=== PATIENT | female | born 1960 | race Caucasian/White ===

== ENCOUNTER 2017-02-11 06:17 | Day surgery (SDC) | payer OTHER ==
[2017-02-10 11:36] VITALS: BMI 41.7
[~2017-02-11 06:17] MED LIST: ceFAZolin SODIUM 1 GM VIAL IVPB ONE
[2017-02-11 06:57] VITALS: TEMP 97.7
[2017-02-11 07:08] LABS: URINE APPEARANCE CLEAR; URINE BILIRUBIN NEGATIVE (NEGATIVE); URINE COLOR LTYELLOW; URINE GLUCOSE (UA) NEGATIVE (NEGATIVE); URINE KETONE NEGATIVE (NEGATIVE); URINE LEUK ESTERASE NEGATIVE (NEGATIVE); URINE NITRITE NEGATIVE (NEGATIVE); URINE PROTEIN NEGATIVE (NEGATIVE); URINE UROBILINOGEN NEGATIVE E.U./dl (0.2-1.0)
[2017-02-11 07:09] LABS: URINE BLOOD 2+ (NEGATIVE)
[2017-02-11 07:16] LABS: URINE BACTERIA RARE /hpf (NONE SEEN); URINE RBC 13 /hpf (0-3); URINE WBC 1 /hpf (3-5)
[2017-02-11] MEDS ORDERED: PROPOFOL 20 ML ONE ×2 (09:15→09:27)
[2017-02-11] MEDS ORDERED: ceFAZolin SODIUM 1 GM VIAL ONE (09:35)
[2017-02-11] MEDS ORDERED: ceFAZolin SODIUM 1 GM VIAL IVPB ONE (09:40)
[2017-02-11] MEDS ORDERED: BUPIVACAINE HCL/PF (5 MG/ML) 30 ML VIAL IJ ONE (10:04)
[2017-02-11] MEDS ORDERED: DEXAMETHASONE SOD PHOSPHATE 4 MG/1 ML VIAL ONE (10:07)
--- NOTE | 2017-02-11 10:17 | OP ---
Operative Note - Note: Operative Date: 02/11/17 Pre-Operative Diagnosis: right knee pain, medial meniscus tear Operation: right knee arthroscopy, partial medial meniscectomy, debridement chondroplasty Post-Operative Diagnosis: Same as Pre-op Surgeon: Ignacio Moreno Anesthesiologist/CALL PERSON: Reji Simental Anesthesia: General, Local Specimens Removed: shavings Estimated Blood Loss (mls): 0 Drains, Volume Out (mls): 0 Blood Volume Replaced (mls): 0 Fluid Volume Replaced (mls): 500 Operative Report Dictated: Yes
--- NOTE | 2017-02-11 10:19 | HP ---
Satellite [facility] - Chief Complaint Chief Complaint: right knee pain History of Present Illness: right knee medial meniscus tear History Source: Patient Limitations to Obtaining History: No Limitations - Past Medical History Allergies/Adverse Reactions: Allergies Allergy/AdvReac Type Severity Reaction Status Date / Time No Known Allergies Allergy Verified 02/11/17 07:00 - Current Medications Current Medications: Home Medications Medication Instructions Recorded Amlodipine Bes/Olmesartan Med 1 each PO DAILY 02/10/17 [Amlodipine-Olmesartan 10-20 mg] Cholecalciferol (Vitamin D3) 50,000 unit PO WEEKLY 02/10/17 [Vitamin D3] Levothyroxine [Synthroid -] 175 mcg PO DAILY 02/10/17 Liraglutide [Victoza -] 1.8 mg SQ HS 02/10/17 Rosuvastatin Calcium [Crestor] 5 mg PO HS 02/10/17 Satellite Physical Exam - Physical Examination Vital Signs: Vital Signs Period Temp Pulse Resp BP Sys/Goel Pulse Ox Last 24 Hr 97.7 F 79 18 128/68 97 General Appearance: Well Nourished ENT: Clear Lung: Clear to auscultation Heart: Regular rate & rhythm Breasts: Soft Abdomen: Soft Extremities: No edema Satellite Impression/Plan - Impression/Plan Impression: right knee medial meniscus tear Operative Procedure: right knee arthroscopy, partial medial meniscectomy Date to be Performed: 02/11/17
[2017-02-11] MEDS ORDERED: ONDANSETRON 4 MG/2 ML VIAL IVPUSH PRN (10:28)
[2017-02-11] MEDS ORDERED: oxyCODONE HCL 5 MG TABLET PO PRN (10:28)
[2017-02-11] MEDS ORDERED: LACTATED RINGERS SOLUTION 1,000 ML IV SCH (10:30)
[2017-02-11 12:39] VITALS: BP 144/66; PULSE 78
--- NOTE | 2017-02-12 08:37 | OP ---
DATE OF OPERATION: 02/11/2017 PREOPERATIVE DIAGNOSIS: Right knee medial meniscus tear and osteoarthritis. POSTOPERATIVE DIAGNOSIS: Right knee medial meniscus tear and osteoarthritis. PROCEDURE: Right knee arthroscopy, partial medial meniscectomy, and debridement chondroplasty. SURGEON: Ignacio Moreno MD TRANSPORTATION ENGINEER: None. ANESTHESIOLOGIST: Reji Simental DO ANESTHESIA: LMA anesthesia with local injection 20 mL 0.5% Marcaine. DRAINS: None. COMPLICATIONS: None. SPECIMENS: Arthroscopic shavings. BLOOD LOSS: None. BLOOD GIVEN: None. FLUID REPLACEMENT: 500 mL. INDICATIONS: This patient is a 56-year-old female with a preoperative diagnosis of a right knee medial meniscus tear and osteoarthritis. After understanding the potential risks, complications, alternatives, and benefits of surgery versus nonsurgical treatment, the patient elected to undergo this procedure. DESCRIPTION OF PROCEDURE: The patient was brought to the operating room, peripheral IV placed, IV sedation was given. Then, 2 g of IV Ancef were given. LMA anesthesia was induced. Ample padding was placed around the right thigh. Tourniquet was applied. Styrofoam ring applied. The right lower extremity was placed into a C-clamp leg-hall with ample padding throughout. The right lower extremity was prepped and draped in sterile fashion, elevated, exsanguinated with an Esmarch bandage, and tourniquet inflated to 275 mmHg. A superomedial outflow portal was established, lateral portal was established. Arthroscope was introduced into the joint under direct visualization using a spinal needle. A medial portal was established. Then, a diagnostic arthroscopy was performed. Patient was seen to have a significant complex tear of the body and posterior horn of the medial meniscus. The radial component went all the way to the edge of the hoop fibers. Using a combination of the right biter, upbiter, and curved shaver, a partial medial meniscectomy was performed. Photographs were taken before and after. In addition, the patient had significant areas of grade 2 and grade 3 chondromalacia of the medial femoral condyle and grade 2 changes of the medial tibial plateau, both of which were debrided with the shaver. Next, our attention turned to the intercondylar notch. The patient states he all looked a little loose, and there was an intrasubstance tear which was left alone, but photographed. Next, we turned our attention to the lateral compartment, which looked great. There was no osteoarthritis, and the lateral meniscus looked fine. Next, our attention was turned to the patellofemoral joint, where the patient had significant areas of grade 3 and even small areas of grade 4 chondromalacia of the undersurface of the patella and the femoral trochlea. Photographs were taken before and after debridement chondroplasty of this joint. All excess saline and debris were removed. Equipment was removed. Arthroscopic portals were closed with 3-0 nylon sutures. The area was then washed and dried. Then, 20 mL of 0.5% Marcaine were introduced into the joint. The area was then covered with Xeroform, 4x4, Webril, and an Nahid bandage. Tourniquet was taken down after a total tourniquet time of 20 minutes There were no complications during the case. The patient tolerated the procedure quite well, was brought to the ambulatory recovery room in stable condition. Nupur [id number]
--- NOTE | 2017-02-12 17:08 | PATH ---
Surgical Pathology Report Patient Name: JONATAN PEÑA [facility]. Rec. #: [id number] /Age/Gender: 1960 (Age: 56) / F Account: [id number] Location: [facility] Taken: 02/11/2017 Received: 02/11/2017 Reported: 02/12/2017 Physicians: Ignacio Moreno M.D. Specimen(s) Received SHAVINGS RIGHT KNEE Clinical History Right knee medial meniscus tear Final Diagnosis KNEE, RIGHT, ARTHROSCOPIC SHAVING: FIBROCARTILAGE WITH MYXOID DEGENERATIVE CHANGES, ALONG WITH PORTIONS OF SYNOVIUM WITH CHRONIC INFLAMMATION, AND HYALINE CARTILAGE. Electronically Signed Daniel Darling M.D. Gross Description Received in formalin, labeled "right knee shaving," is a 4.0 x 3.4 x 0.6 cm. aggregate of pineda-yellow soft tissue fragments. A national account representative portion is submitted in one cassette. /02/11/201702/11/2017
== END 2017-02-11 12:39 | disposition home or self-care (01) ==
LOC: JASU-SURG 06:17
PROVIDERS: ATTEND Orthopaedic Surgery
PROC: 0SBC4ZZ Excision of Right Knee Joint, Percutaneous Endoscopic Approach (ICD-10-PCS; principal; 2017-02-11 09:00)
DX: M23.203 Derangement of unspecified medial meniscus due to old tear or injury, right knee (principal); M17.11 Unilateral primary osteoarthritis, right knee
CPT/HCPCS: 36415; 81003; 81015; 85730; 88304-TC; 94760

== ENCOUNTER 2017-09-23 21:00 | Emergency (ER) | payer OTHER ==
--- NOTE | 2017-09-23 21:09 | PDOC ---
History of Present Illness - General History Source: Patient Exam Limitations: No Limitations <Meseret Wilkins - Last Filed: 09/23/17 22:07> <Muriel Forrest - Last Filed: 09/24/17 01:13> - General Chief Complaint: Palpitations Stated Complaint: PALPITATIONS Time Seen by Provider: 09/23/17 21:08 - History of Present Illness Initial Comments: 09/23/17 22:04 57 year old female, with significant past medical history of borderline diabetes , thyroidectomy, HTN, HLD, who presents to the emergency room complaining of 2 days of intermittent, nonexertional fluttering in her chest. When asked to describe the fluttering she states, "that feeling in your chest when you get scared" and "a pressure." When the fluttering occurs, she reports the sensation that she has to cough. 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 Denies lightheadedness, dizziness. Denies recent illness. Denies increased leg swelling. Denies fever, chills, nausea, vomiting. Allergies: NKDA Surgical hx: cholecystectomy PCP/[employer] Wheel [employer]isher: Dr. Niko Gay (Meseret Wilkins) Past History <Meseret Wilkins - Last Filed: 09/23/17 22:07> - Past Medical History Diabetes: Yes (BORDERLINE) HTN: Yes Thyroid Disease: Yes - Surgical History Orthopedic Surgery: Yes (LEFT KNEE REPLACEMENT) - Suicide/Smoking/Psychosocial Hx Smoking History: Current every day smoker Have you smoked in the past 12 months: Yes Number of Cigarettes Smoked Daily: 10 'Breaking Loose' booklet given: 02/11/17 Hx Alcohol Use: No Drug/Substance Use Hx: No Substance Use Type: None Hx Substance Use Treatment: No <Muriel Forrest - Last Filed: 09/24/17 01:13> - Past Medical History Allergies/Adverse Reactions: Allergies Allergy/AdvReac Type Severity Reaction Status Date / Time No Known Allergies Allergy Verified 09/23/17 21:16 Home Medications: Ambulatory Orders Amlodipine Bes/Olmesartan Med [Amlodipine-Olmesartan 10-20 mg] 1 each PO DAILY 02/10/17 Levothyroxine [Synthroid -] 175 mcg PO DAILY 02/10/17 Liraglutide [Victoza -] 1.8 mg SQ HS 02/10/17 Folic Acid 1 mg PO DAILY 09/23/17 Rosuvastatin [Crestor -] 10 mg PO HS 09/23/17 Nitrofurantoin Monohyd/M-Cryst [Macrobid -] 100 mg PO BID #10 capsule 09/24/17 Review of Systems - Review of Systems Able to Perform ROS?: Yes <Meseret Wilkins - Last Filed: 09/23/17 22:07> <Muriel Forrest - Last Filed: 09/24/17 01:13> - Review of Systems Comments:: 09/23/17 22:05 GENERAL/CONSTITUTIONAL: No fever or chills. No weakness. HEAD, EYES, EARS, NOSE AND THROAT: No change in vision. No ear pain or discharge. No sore throat. CARDIOVASCULAR: +fluttering in her chest, chest pressure. No shortness of breath. RESPIRATORY: No wheezing, or hemoptysis. GASTROINTESTINAL: No nausea, vomiting, diarrhea or constipation. GENITOURINARY: No dysuria, frequency, or change in urination. MUSCULOSKELETAL: No joint or muscle swelling or pain. No neck or back pain. SKIN: No rash NEUROLOGIC: No headache, vertigo, loss of consciousness, or change in strength/ sensation. ENDOCRINE: No increased thirst. No abnormal weight change. HEMATOLOGIC/LYMPHATIC: No anemia, easy bleeding, or history of blood clots. ALLERGIC/IMMUNOLOGIC: No hives or skin allergy. (Meseret Wilkins) *Physical Exam <Meseret Wilkins - Last Filed: 09/23/17 22:07> <Muriel Forrest - Last Filed: 09/24/17 01:13> - Vital Signs Last Vital Signs Temp Pulse Resp BP Pulse Ox 98.8 F 82 16 149/70 95 09/23/17 21:07 09/23/17 21:07 09/23/17 21:07 09/23/17 21:07 09/23/17 21:07 - Physical Exam Comments: 09/23/17 22:06 GENERAL: Awake, alert, and fully oriented, in no acute distress HEAD: No signs of trauma EYES: PERRLA, EOMI, sclera anicteric, conjunctiva clear ENT: Auricles normal inspection, hearing grossly normal, nares patent, oropharynx clear without exudates. Moist mucosa NECK: Normal ROM, supple, no lymphadenopathy, JVD, or masses LUNGS: Breath sounds equal, clear to auscultation bilaterally. No wheezes, and no crackles HEART: Regular rate and rhythm, normal S1 and S2, no murmurs, rubs or gallops ABDOMEN: Soft, nontender, normoactive bowel sounds. No guarding, no rebound. No masses EXTREMITIES: Normal range of motion, no edema. No clubbing or cyanosis. No cords, erythema, or tenderness NEUROLOGICAL: Cranial nerves II through XII grossly intact. Normal speech, normal gait SKIN: Warm, Dry, normal turgor, no rashes or lesions noted. (Meseret Wilkins) ED Treatment Course - LABORATORY CBC & Chemistry Diagram: 09/23/17 21:40 09/23/17 21:40 <Meseret Wilkins - Last Filed: 09/23/17 22:07> - LABORATORY CBC & Chemistry Diagram: 09/23/17 21:40 09/23/17 21:40 <Muriel Forrest - Last Filed: 09/24/17 01:13> - ADDITIONAL ORDERS Additional order review: Laboratory Results 09/23/17 09/23/17 09/23/17 22:39 21:40 21:40 PT with INR 12.3 INR 1.10 Sodium 135 L Potassium 3.6 Chloride 103 Carbon Dioxide 26 Anion Gap 6 L BUN 15 Creatinine 0.6 Creat Clearance w eGFR > 60 Random Glucose 100 Calcium 9.1 Total Bilirubin 0.6 AST 17 ALT 21 Alkaline Phosphatase 101 H Creatine Kinase 139 Troponin I < 0.03 L Total Protein 7.6 Albumin 4.0 Urine Color Yellow Urine Appearance Clear Urine pH 7.0 Ur Specific [place] 1.020 Urine Protein Negative Urine Glucose (UA) Negative Urine Ketones Negative Urine Blood 2+ H Urine Nitrite Negative Urine Bilirubin Negative Urine Urobilinogen 0.2 Ur Leukocyte Esterase Negative Urine RBC 40-60 Urine WBC 0-2 Ur Epithelial Cells Few Urine Bacteria Few 09/23/17 21:40 RBC 5.99 H MCV 69.7 L MCHC 32.0 RDW 14.3 MPV 10.2 Neutrophils % 57.6 Lymphocytes % 32.8 Monocytes % 7.3 Eosinophils % 1.7 Basophils % 0.6 - Medications Given in the ED: ED Medications Discontinued Medications Generic Name Dose Route Start Last Admin Trade Name Lorie PRN Reason Stop Dose Admin Ondansetron HCl 4 mg 09/23/17 21:39 09/23/17 22:00 Zofran Injection IVPUSH 09/23/17 21:40 Not Given ONCE ONE Progress Note <ClaudetteMeseret - Last Filed: 09/23/17 22:07> <Muriel Forrest - Last Filed: 09/24/17 01:13> - Progress Note Progress Note: Documentation has been prepared under my direction and personally reviewed by me in its entirety. I attest that this documented accurately reflects all work, treatment, procedures and medical decision making performed by me. (Muriel Forrest) Medical Decision Making <Meseret Wilkins - Last Filed: 09/23/17 22:07> <Muriel Forrest - Last Filed: 09/24/17 01:13> - Medical Decision Making 09/23/17 22:29 As noted above, this 57-year-old woman with hypertension/prediabetes/s/p thyroidectomy presents with a few day history of frequent palpitations, described as "fluttering" in her chest. Palpitations are not associated with activity; sensation resolved spontaneously. Patient states that she coughs when she has the palpitations and may have some "pressure" feeling at the time of palpitations but no shortness of breath noted. No recent fluid losses/ fever. Patient does not recall recent TFTs and has had no change in her thyroid medication since she was placed on replacement medication 2 years ago after surgery. Patient admits to drinking large amounts (greater than 2 L a day) of Pepsi. No smoking or other caffeine intake Exam as noted 12-lead electrocardiogram performed and interpreted by me: Normal sinus rhythm at 78 beats for minute; no acute ST or T-wave abnormalities. [place] and intervals are normal. There is no arrhythmia present: No ectopic beats seen on 12-lead electrocardiogram Monitor reveals occasional PACs only 09/24/17 01:06 Laboratory evaluation notable for white blood cell count of 13,500; except for MCV of 67, remainder of CBC was unremarkable. Chemistry profile showed relative prerenal azotemia but no abnormality in electrolytes or glucose levels. Troponin is not elevated. Urinalysis notable for microscopic hematuria (40 to 60 RBCs per high-power field ) with 0-2 WBCs/few bacteria/few epi TSH pending Dr.Nadem Gay (patient's PMD) answering service contacted in order to discuss case with him. However, although 3 attempts were made, his covering physician ( Dr. Woodall) stated to the answering service staff that he would not be able to answer any calls from emergency departments. Continuous monitoring of patient's heart rhythm showed occasional solitary PAc without other arrhythmia. In light of microscopic hematuria and patient's history of prediabetes, despite no symptoms of dysuria or urinary frequency/urgency, we will prophylactically treat for UTI with nitrofurantoin 100 mg now with prescription for nitrofurantoin 100 mg twice a day for 5 days. Urine culture and sensitivity sent. Patient should follow-up with Dr. Gay soon, calling him tomorrow a.m. to make arrangements. If she has worsening of her symptoms (increased palpitations, shortness of breath, chest pain/pressure) she should return to the ER (Muriel Forrest) *DC/Admit/Observation/Transfer <Meseret Wilkins - Last Filed: 09/23/17 22:07> <Muriel Forrest - Last Filed: 09/24/17 01:13> Diagnosis at time of Disposition: PAC (premature atrial contraction), Microscopic hematuria - Discharge Dispostion Disposition: HOME Condition at time of disposition: Stable - Prescriptions Prescriptions: Nitrofurantoin Monohyd/M-Cryst [Macrobid -] 100 mg PO BID #10 capsule - Referrals Referrals: Niko Gay [Primary Care Provider] - Call tomorrow - Patient Instructions Printed Discharge Instructions: DI for Palpitations Additional Instructions: Drink plenty of water; minimize caffeinated beverages Continue medications as prescribed Nitrofurantoin 100 mg twice a day for 5 days Call tomorrow to arrange follow-up within 3-4 days Return to ER if you have more frequent palpitations/chest pain or pressure/ shortness of breath - Post Discharge Activity - Attestations Scribe Attestion: 09/23/17 22:07 Documentation prepared by LEONOR Ramirez, acting as medical laboratory technicians for Muriel Forrest MD. (Meseret Wilkins)
[2017-09-23 21:24] VITALS: BP 149/70; PULSE 82; TEMP 98.8; BMI 41.1
[2017-09-23] MEDS ORDERED: ONDANSETRON 4 MG/2 ML VIAL IVPUSH ONE (21:39)
[2017-09-23 22:01] LABS: BASOPHIL 0.6 % (0-2.0); RDW 14.3 % (11.6-15.6)
[2017-09-23 22:04] LABS: EOSINOPHIL 1.7 % (0-4.5); MCH 22.3 pg (25.7-33.7); MEAN CELL VOLUME 69.7 fl (80-96); MEAN PLT VOLUME 10.2 fl (7.5-11.1); NEUTROPHILS 57.6 % (42.8-82.8); PLATELET COUNT 219 K/MM3 (134-434); WHITE BLOOD COUNT 13.6 K/mm3 (4.0-10.8)
[2017-09-23 22:09] LABS: INR 1.1 (0.82-1.09); PROTHROMBIN TIME (PATIENT) 12.3 SEC (10.2-13.0)
[2017-09-23 22:17] LABS: ALK PHOS 101 U/L (32-92); ANION GAP 6 (8-16); BILIRUBIN,TOTAL 0.6 mg/dl (0.2-1.0); CALCIUM 9.1 mg/dl (8.4-10.2); CO2 26 mmol/L (22-28); CPK 139 IU/L (26-192); CREATININE 0.6 mg/dl (0.6-1.3); GLUCOSE,RANDOM 100 mg/dl (74-106); SGOT/AST 17 U/L (10-42); SGPT/ALT 21 U/L (10-40); TOT PROT 7.6 g/dl (6.4-8.3)
[2017-09-23 22:25] LABS: TROPONIN I (DFP) < 0.03 ng/ml (0.03-0.50)
[2017-09-23 22:48] LABS: URINE APPEARANCE Clear; URINE BILIRUBIN Negative (NEGATIVE); URINE BLOOD 2+ (NEGATIVE); URINE COLOR YELLOW; URINE GLUCOSE (UA) Negative (NEGATIVE); URINE KETONE Negative (NEGATIVE); URINE LEUK ESTERASE Negative (NEGATIVE); URINE NITRITE Negative (NEGATIVE); URINE PROTEIN Negative (NEGATIVE); URINE UROBILINOGEN 0.2 (0.2-1.0)
[2017-09-23 23:02] LABS: URINE BACTERIA FEW /hpf (NEGATIVE); URINE RBC 40-60 /hpf (0-3); URINE WBC 0-2 (0-5)
[2017-09-23 23:06] LABS: HYPOCHROMIA 2+; MICROCYTOSIS 2+; PLATELET ESTIMATE ADEQUATE
[2017-09-24] MEDS ORDERED: NITROFURANTOIN MACROCRYSTAL 50 MG CAPSULE (FP) ONE (01:00)
[2017-09-24] MEDS ORDERED: NITROFURANTOIN MACROCRYSTAL 50 MG CAPSULE (FP) PO SCH (01:00)
--- NOTE | 2017-09-26 17:31 | EKG ---
Test Reason : Blood Pressure : / mmHG Vent. Rate : 078 BPM Atrial Rate : 078 BPM P-R Int : 158 ms QRS Dur : 082 ms QT Int : 386 ms P-R-T Axes : 036 024 035 degrees QTc Int : 440 ms NORMAL SINUS RHYTHM POSSIBLE LEFT ATRIAL ENLARGEMENT BORDERLINE ECG WHEN COMPARED WITH ECG OF 29-JAN-2010 09:13, NO SIGNIFICANT CHANGE WAS FOUND Confirmed by MARILUZ MOTA MD ([id number]) on 09/26/2017 5:31:25 PM Referred By: DR MORALES Confirmed By:MARILUZ MOTA MD
== END 2017-09-24 01:07 | disposition home or self-care (01) ==
LOC: FER 21:00
DX: I49.1 Atrial premature depolarization (principal); R31.29 Other microscopic hematuria; R73.03 Prediabetes; I10 Essential (primary) hypertension; E78.5 Hyperlipidemia, unspecified; F17.210 Nicotine dependence, cigarettes, uncomplicated; E07.9 Disorder of thyroid, unspecified
CPT/HCPCS: 36415; 80053; 81003; 81015; 82550; 84443; 84484; 85025; 85610; 87086; 93005; 99284-25

== ENCOUNTER 2018-02-22 05:15 | Day surgery (SDC) | payer OTHER ==
[2018-02-17 08:05] VITALS: BMI 42.0
--- NOTE | 2018-02-22 08:41 | HP ---
Past Medical History - Primary Care Physician PCP:: Ramana Sosa - Admission Chief Complaint: postmenopausal vaginal bleeding History Source: Patient Limitations to Obtaining History: No Limitations - Past Medical History Cardiovascular: Yes: HTN, Hyperlipdemia Pulmonary: Yes: Asthma Endocrine: Yes: Hypothyroidism - Past Surgical History Hx Myomectomy: No Hx Transabdominal Cerclage: No - Smoking History Smoking history: Current every day smoker Have you smoked in the past 12 months: Yes Aproximately how many cigarettes per day: 20 - Alcohol/Substance Use Hx Alcohol Use: No - Social History History of Recent Travel: No Home Medications - Allergies Allergies/Adverse Reactions: Allergies Allergy/AdvReac Type Severity Reaction Status Date / Time No Known Allergies Allergy Verified 02/22/18 08:12 - Home Medications Home Medications: Ambulatory Orders Amlodipine Bes/Olmesartan Med [Amlodipine-Olmesartan 10-20 mg] 1 each PO DAILY 02/10/17 Folic Acid 1 mg PO DAILY 09/23/17 Rosuvastatin [Crestor -] 10 mg PO HS 09/23/17 Exenatide Microspheres [Bydureon Pen] 2 mg SQ WEEKLY 02/17/18 Levothyroxine [Synthroid -] 150 mcg PO DAILY 02/17/18 Review of Systems - Review of Systems Constitutional: reports: No Symptoms Eyes: reports: No Symptoms HENT: reports: No Symptoms Neck: reports: No Symptoms Cardiovascular: reports: No Symptoms Respiratory: reports: No Symptoms Gastrointestinal: reports: No Symptoms Genitourinary: reports: No Symptoms Breasts: reports: No Symptoms Reported Musculoskeletal: reports: No Symptoms Integumentary: reports: No Symptoms Neurological: reports: No Symptoms Endocrine: reports: No Symptoms Hematology/Lymphatic: reports: No Symptoms Psychiatric: reports: No Symptoms 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 Vital Signs: Vital Signs Temperature 98.7 F 02/22/18 07:31 Pulse Rate 79 02/22/18 07:31 Respiratory Rate 18 02/22/18 07:31 Blood Pressure 129/69 02/22/18 07:31 O2 Sat by Pulse Oximetry (%) 97 02/22/18 07:30 Constitutional: Yes: Well Nourished, No Distress, Calm Eyes: Yes: WNL, Conjunctiva Clear, EOM Intact HENT: Yes: WNL, Atraumatic, Normocephalic Neck: Yes: WNL, Supple, Trachea Midline Cardiovascular: Yes: WNL, Regular Rate and Rhythm Respiratory: Yes: WNL, Regular, CTA Bilaterally Gastrointestinal: Yes: WNL ...Rectal Exam: Yes: WNL Renal/: Yes: WNL External Genitalia: Yes: Normal Vaginal Exam: Yes: Normal Cervix: Yes: Normal Uterus: Yes: Normal Adnexa: Not Palpable: Left, Right Breast(s): Yes: WNL Musculoskeletal: Yes: WNL Extremities: Yes: WNL Integumentary: Yes: WNL Neurological: Yes: WNL, Alert, Oriented ...Motor Strength: WNL Psychiatric: Yes: WNL, Alert, Oriented Problem List - Problem (1) Postmenopausal bleeding Code(s): N95.0 - POSTMENOPAUSAL BLEEDING Assessment/Plan hysteroscopy D&C
[2018-02-22] MEDS ORDERED: PROMETHAZINE HCL 25 MG/1 ML VIAL IVPB PRN (08:53)
[2018-02-22] MEDS ORDERED: oxyCODONE HCL 5 MG TABLET PO PRN ×2 (08:53→10:27)
[2018-02-22] MEDS ORDERED: ONDANSETRON 4 MG/2 ML VIAL IVPUSH PRN ×2 (08:53→10:27)
[2018-02-22] MEDS ORDERED: LACTATED RINGERS SOLUTION 1,000 ML IV SCH (09:00)
[2018-02-22] MEDS ORDERED: MIDAZOLAM HCL 2 MG/2 ML SINGLE DOSE VIAL ONE (09:15)
[2018-02-22] MEDS ORDERED: PROPOFOL 20 ML ONE (09:20)
[2018-02-22 10:07] VITALS: TEMP 97.8
[2018-02-22] MEDS ORDERED: IBUPROFEN 600 MG TABLET (FP) PO PRN (10:27)
[2018-02-22] MEDS ORDERED: IBUPROFEN 800 MG/8 ML IJ IVPB PRN (10:27)
[2018-02-22] MEDS ORDERED: ELECTROLYTE-148 SOLN 1,000 ML IV SCH (10:30)
[2018-02-22] MEDS ORDERED: IBUPROFEN 600 MG TABLET (FP) PO ONE (11:26)
--- NOTE | 2018-02-22 13:34 | OP ---
DATE OF OPERATION: 02/22/2018 PREOPERATIVE DIAGNOSIS: Postmenopausal bleeding. POSTOPERATIVE DIAGNOSIS: Postmenopausal bleeding, endometrial polyp. SURGEON: Ramana Sosa MD ANESTHESIA: General. ANESTHESIOLOGIST: Mary Camargo MD ESTIMATED BLOOD LOSS: 25 mL OPERATION: Patient was taken to the operating room under adequate general anesthesia. Examination under anesthesia revealed the external genitalia to be normal. Vagina was normal. Cervix was clean, no gross lesion. The uterus was prominent. Adnexa no masses were palpable. Then with the weighted speculum in the vagina, anterior lip of the cervix was grasped with tenaculum. The cervix was slightly dilated with Hegar dilator and then hysteroscope was introduced. Visualization of the endocervical canal appeared there was a small posterior cervical polyp. Uterine cavity had endometrial polyp at the fundal area approximately 2 cm. The rest of the endometrium appeared to be normal and slightly atrophic. Both cornual region was identified and no other abnormality was noted. The hysteroscope was withdrawn and the cervix was gradually dilated with Hegar dilator. Endometrial polyp was removed and the uterine cavity was curetted in manager budget fashion. Patient tolerated the procedure well, left the OR in good condition. RAMANA SOSA M.D. [id number]
[2018-02-22 14:53] VITALS: BP 117/71; PULSE 70
--- NOTE | 2018-02-23 11:27 | PATH ---
Surgical Pathology Report Patient Name: JONATAN PEÑA [facility]. Rec. #: [id number] /Age/Gender: 1960 (Age: 57) / F Account: [id number] Location: [facility] Taken: 02/22/2018 Received: 02/22/2018 Reported: 02/23/2018 Physicians: Ramana Sosa M.D. Specimen(s) Received A: ENDOMETRIUM POLYP B: ENDOCERVICAL CURETTINGS Clinical History Postmenopausal bleeding Final Diagnosis A. ENDOMETRIAL POLYP, HYSTEROSCOPIC POLYPECTOMY: ENDOMETRIAL POLYP. B. ENDOMETRIAL CURETTING, DILATION AND CURETTAGE: FRAGMENTS OF ENDOMETRIAL POLYP, SCANT SUPERFICIAL MYOMETRIUM, AND BENIGN CERVICAL TISSUE Electronically Signed Rupali Lopez M.D. Gross Description A. Received in formalin labeled "endometrial polyp," is a 0.6 cm greatest dimension pink-pineda, polypoid portion of soft tissue. The specimen is submitted in toto in one cassette. B. Received in formalin labeled "endometrial curettings," is a 2.5 x 2.5 x 0.3 cm aggregate of red pineda soft tissue fragments. The formalin is filtered and the specimen is entirely submitted in one cassette. 02/22/201802/22/2018
== END 2018-02-22 12:00 | disposition home or self-care (01) ==
LOC: JASU-SURG 05:15
PROVIDERS: ATTEND Obstetrics & Gynecology
PROC: 0UB98ZX Excision of Uterus, Via Natural or Artificial Opening Endoscopic, Diagnostic (ICD-10-PCS; principal; 2018-02-22 09:00)
PROC: 0UDB8ZX Extraction of Endometrium, Via Natural or Artificial Opening Endoscopic, Diagnostic (ICD-10-PCS; 2018-02-22 09:00)
DX: N95.0 Postmenopausal bleeding (principal); N84.0 Polyp of corpus uteri; I10 Essential (primary) hypertension; E78.5 Hyperlipidemia, unspecified; E03.9 Hypothyroidism, unspecified; J45.909 Unspecified asthma, uncomplicated; F17.200 Nicotine dependence, unspecified, uncomplicated
CPT/HCPCS: 36415; 82962; 84703; 86850; 86900; 86901; 88305-TC; 94760

== ENCOUNTER 2019-11-25 15:38 | Emergency (ER) | payer BC, OTHER ==
[2019-11-25 15:43] VITALS: BP 137/69; PULSE 78; TEMP 98.7; BMI 43.0
[2019-11-25] MEDS ORDERED: guaiFENesin/CODEINE 10 ML UNIT-DOSE CUPS PO ONE (16:53)
[2019-11-25] MEDS ORDERED: guaiFENesin/CODEINE 10 ML UNIT-DOSE CUPS ONE (16:55)
--- NOTE | 2019-11-25 17:35 | PDOC ---
History of Present Illness - General Chief Complaint: Respiratory Stated Complaint: COUGH Time Seen by Provider: 11/25/19 15:41 History Source: Patient Exam Limitations: No Limitations - History of Present Illness Initial Comments: 59F PMH Hypothyroidism, HTN, HLD c/o 3 days of myalgias and persistent nonproductive cough. Denies rhinorrhea, wheezing, sore throat. Denies f/c. Denies sick contacts. No f/c. Pt endorses having coughed so much that she experiences chest pain w/ the coughs. One episode of post-tussive vomiting otherwise no n/v. No abd pain, dysuria, diarrhea. current smoker. Past History - Past Medical History Allergies/Adverse Reactions: Allergies Allergy/AdvReac Type Severity Reaction Status Date / Time No Known Allergies Allergy Verified 11/25/19 15:39 Home Medications: Ambulatory Orders Amlodipine Bes/Olmesartan Med [Amlodipine-Olmesartan 10-20 mg] 1 each PO DAILY 02/10/17 Levothyroxine [Synthroid -] 137 mcg PO DAILY 02/17/18 Guaifenesin AC [Robitussin-AC] 1 - 2 tsp PO TID PRN #120 ml MDD 6 11/25/19 COPD: No Diabetes: Yes (borderline) GI Disorders: Yes (heartburn occas) HTN: Yes Hypercholesterolemia: Yes Thyroid Disease: Yes - Surgical History Cholecystectomy: Yes Orthopedic Surgery: Yes (LEFT KNEE REPLACEMENT) - Psycho Social/Smoking Cessation Hx Smoking History: Current every day smoker Have you smoked in the past 12 months: Yes Number of Cigarettes Smoked Daily: 9 Information on smoking cessation initiated: Yes 'Breaking Loose' booklet given: 02/11/17 Hx Alcohol Use: No Drug/Substance Use Hx: No Substance Use Type: None Hx Substance Use Treatment: No Review of Systems - Review of Systems Able to Perform ROS?: Yes Comments:: CONSTITUTIONAL: endorses myalgias. Denies F / C HEENT: Denies headache, sore throat, rhinorrhea RESP: endorses nonproductive cough. denies sob. CARD: Denies cardiac type chest pain GI: Denies N / V / D, abdominal pain, bloody stool, inability to tolerate PO : Denies dysuria SKIN: Denies rashes NEURO: Denies numbness, tingling, weakness MSK: Denies back pain Is the patient limited [place] proficient: No *Physical Exam - Vital Signs Last Vital Signs Temp Pulse Resp BP Pulse Ox 98.7 F 78 18 137/69 98 11/25/19 15:38 11/25/19 15:38 11/25/19 15:38 11/25/19 15:38 11/25/19 15:38 - Physical Exam GEN: Well appearing, NAD. AAOx3. HEENT: NC/AT. No facial asymmetry. Moist mucous membranes, no erythema of the oropharynx. raspy voice. Supple neck w/ FROM. CV: S1/S2, RRR, no m/r/g LUNG: CTAB, no wheezes, crackles, rales, rhonchi. GI: Soft, ndnt, +BS, no guarding, no rebound. No masses. MSK: No obvious deformities of all extremities. SKIN: Warm, dry, no rashes appreciated. PSYCH: Normal mood and affect. NEURO: Moving all extremities well. ambulates w/ normal gait. ED Treatment Course - Medications Given in the ED: ED Medications Discontinued Medications Generic Name Dose Route Start Last Admin Trade Name Freq PRN Reason Stop Dose Admin Guaifenesin/Codeine Phosphate 10 ml 11/25/19 16:53 11/25/19 16:57 Robitussin Ac - PO 11/25/19 16:54 10 ml ONCE ONE Administration Medical Decision Making - Medical Decision Making 11/25/19 17:30 59F w/ 3 days of nonproductive cough and myalgias. No f/c. lungs CTAB. DDX - likely viral; at this point it is unlikely to be pneumonia, bacterial etiology, postnasal drip. - codeine syrup - cough improved s/p meds - dc home w/ meds and pcp f/u Discharge - Discharge Information Problems reviewed: Yes Clinical Impression/Diagnosis: Cough Condition: Stable Disposition: HOME - Admission No - Additional Discharge Information Prescriptions: Guaifenesin AC [Robitussin-AC] 1 - 2 tsp PO TID PRN #120 ml MDD 6 PRN Reason: Cough - Follow up/Referral Referrals: Karlos Gay MD [Primary Care Provider] - - Patient Discharge Instructions Patient Printed Discharge Instructions: Cough Additional Instructions: You likely have a viral illness causing your cough. We have sent a prescription cough medication to your pharmacy; please pick it up and take as prescribed. This medication may cause drowsiness. Avoid driving or operating heavy machinery while on this medication. Avoid alcohol while on this medication. We recommend smoking cessation. Follow up with your primary care doctor in the next 5-7 days to make sure the symptoms are improving. Return to the Emergency Department if you experience: - high fevers - difficulty breathing - chest pain - anything that concerns you - Post Discharge Activity
--- NOTE | 2019-11-25 17:41 | PDOC ---
Attending Attestation - Resident Resident Name: Octavio East - ED Attending Attestation I have performed the following: I have examined & evaluated the patient, The case was reviewed & discussed with the resident, I agree w/resident's findings & plan, Exceptions are as noted - HPI HPI: 11/25/19 17:39 Cold symptoms. Nonproductive cough. No fever. No chest pain, shortness of breath Past history mild hypertension and hypothyroidism controlled on medication. No lung disease. Smoker. - Physicial Exam PE: 11/25/19 17:39 Alert no acute distress, no tachypnea or dyspnea, afebrile BP well controlled Lungs clear, full breath sounds bilaterally, no splinting with deep inspiration CV normal Abdomen benign - Medical Decision Making 11/25/19 17:40 Impression: Mild viral bronchitis versus URI with cough. No respiratory distress Plan: Reassure, symptomatic treatment and close follow-up if symptoms change. No distress respiratory or otherwise at discharge with to follow-up as directed
== END 2019-11-25 17:40 | disposition home or self-care (01) ==
LOC: FER 15:38
DX: R05 Cough (principal); I10 Essential (primary) hypertension; E78.5 Hyperlipidemia, unspecified; M79.10 Myalgia, unspecified site; E03.9 Hypothyroidism, unspecified; R73.03 Prediabetes; E78.00 Pure hypercholesterolemia, unspecified; E07.9 Disorder of thyroid, unspecified; F17.210 Nicotine dependence, cigarettes, uncomplicated
CPT/HCPCS: 99282-25

== ENCOUNTER 2019-12-10 11:28 | Emergency (ER) | payer BC ==
[2019-12-10 11:36] VITALS: BP 148/73; PULSE 88; TEMP 98.2; BMI 42.6
[2019-12-10] MEDS ORDERED: ACETAMINOPHEN 325 MG TABLET (FP) PO ONE (11:45)
--- NOTE | 2019-12-10 11:46 | PDOC ---
History of Present Illness - General Chief Complaint: Pain Stated Complaint: fell down steps,both ankles Time Seen by Provider: 12/10/19 11:30 History Source: Patient, Spouse ( at bedside.) Exam Limitations: No Limitations - History of Present Illness Initial Comments: HPI: 59 y/o female presenting to [place] [facility] complaining of bilateral ankle pain s /p fall from standing height approx. 1.5 hrs prior to arrival. Left ankle hurts laterally and right ankle hurts posteriorly. Pt reports she accidentally tripped stepping down on the stairs outside of her building. Fell to the left side. Cushioned by her laundry bag. Denies striking her head or neck. Did not pass out. Was able to walk up to her apartment with assistance from her . Applied ice to both ankles without improvement of symptoms. Did not attempt relief with any OTC pain medication. Subsequently, expressed concern about hip tenderness as she is s/p jolene placement for left femur fracture. Review of Systems: In addition to that documented in the HPI above, the additional ROS was obtained : Constitutional- Denies fevers or chills ENMT- Denies sore throat CV- Denies chest pain Resp- Denies SOB GI- Denies vomiting or diarrhea MSK- Per HPI Physical Examination: Vital signs and nursing notes reviewed. Constitutional- Obese adult female in no acute distress or obvious discomfort. Initially observed ambulating into the department with some assistance from her . Found semi-fowlers on hospital bed. Answered all questions appropriately and completely. Head- Normocephalic. No obvious external signs of trauma. Cardiovascular / Chest- Regular rate. 3+ bilateral pedal pulses. Respiratory- Breathing unlabored. Speaking in complete sentences without pausing. Gastrointestinal- abdomen is soft, non-tender, non-distended. Neuro- Alert and oriented x4. Moving all four extremities spontaneously. No facial asymmetry. No slurred speech. MSK- Diffuse discomfort without point tenderness with lateral compression of left side of pelvis. No obvious pelvic deformity or laxity. Mild swelling without discoloration to left lateral malleolus and dorsal surface of foot. No obvious bony deformity. Point tenderness to posterior aspect of right heel without swelling or other signs of trauma. Plantar and dorsiflexion 5/5 bilaterally. Both extremities are warm and appear well perfused. Skin- Warm, dry, and intact. No bleeding. Psych- Affect- appropriate. Mood- normal. Speech was non-labored, non- pressured. MDM: 59 y/o female presenting with bilateral ankle pain (L >R) and left hip pain after likely mechanical fall. Afebrile. Vitals unremarkable for hypotension or tachycardia. Physical exam as described above. Suspect likely MSK strain vs sprain. Low suspicion for fracture or dislocation. Will evaluate further with plain films. Ordered Tylenol and ice pack for pain relief. Reviewed radiology reports. No acute fracture or dislocation. No evidence of jolene displacement. 10 Dec 2019 13:08 PM Pt reassessed. Reports pain feels much better. Discussed radiology findings with pt. Answered all questions. Provided return precautions. pt expressed verbal understanding and agreement with plan to discharge home with outpatient follow up. Provided copies of todays results. Raymundo Arthur M.D., PGY2 Emergency Medicine Resident Past History - Past Medical History Allergies/Adverse Reactions: Allergies Allergy/AdvReac Type Severity Reaction Status Date / Time No Known Allergies Allergy Verified 12/10/19 11:29 Home Medications: Ambulatory Orders Amlodipine Bes/Olmesartan Med [Amlodipine-Olmesartan 10-20 mg] 1 each PO DAILY 02/10/17 Levothyroxine [Synthroid -] 137 mcg PO DAILY 02/17/18 COPD: No Diabetes: Yes (borderline) GI Disorders: Yes (heartburn occas) HTN: Yes Hypercholesterolemia: Yes Thyroid Disease: Yes - Surgical History Cholecystectomy: Yes Orthopedic Surgery: Yes (LEFT KNEE REPLACEMENT) - Psycho Social/Smoking Cessation Hx Smoking History: Current every day smoker Have you smoked in the past 12 months: Yes Number of Cigarettes Smoked Daily: 20 Information on smoking cessation initiated: Yes 'Breaking Loose' booklet given: 02/11/17 Hx Alcohol Use: No Drug/Substance Use Hx: No Substance Use Type: None Hx Substance Use Treatment: No *Physical Exam - Vital Signs Last Vital Signs Temp Pulse Resp BP Pulse Ox 98.2 F 88 20 148/73 98 12/10/19 11:29 12/10/19 11:29 12/10/19 11:29 12/10/19 11:29 12/10/19 11:29 ED Treatment Course - RADIOLOGY Radiology Studies Ordered: Category Date Time Status ANKLE & FOOT-LEFT* [RAD] Stat Radiology 12/10/19 11:41 Ordered ANKLE & FOOT-RIGHT* [RAD] Stat Radiology 12/10/19 11:41 Ordered HIP & PELVIS-LEFT [RAD] Stat Radiology 12/10/19 11:41 Ordered Discharge - Discharge Information Problems reviewed: Yes Clinical Impression/Diagnosis: Left hip pain Ankle sprain Qualifiers: Encounter type: initial encounter Involved ligament of ankle: unspecified ligament Laterality: left Qualified Code(s): S93.402A - Sprain of unspecified ligament of left ankle, initial encounter Right ankle pain Qualifiers: Chronicity: acute Qualified Code(s): M25.571 - Pain in right ankle and joints of right foot Condition: Improved Disposition: HOME - Admission No - Follow up/Referral - Patient Discharge Instructions Patient Printed Discharge Instructions: DI for Ankle Sprain, How To Perform RICE (Rest, Ice, Compress, Elevate) Additional Instructions: You were seen today for right and left ankle and left hip pain. Your xrays were normal today. You likely sprained your ankle. Read the attached packet on ways to help with the pain. You can take over the counter Tylenol or Advil as needed for pain. Take as directed on the package insert. Do not exceed the recommended dosage. Follow up with your primary care doctor in the next week or as needed. You will need to call to make an appointment. The number is included in this packet. A copy of todays results are attached to this packet. Take it to the appointment so your doctor can review them. Go to the nearest emergency department if your condition worsens or you feel like you need additional emergency evaluation. Print Language: SWEDISH - Post Discharge Activity Work/Back to School Note: Back to Work
[2019-12-10] MEDS ORDERED: IBUPROFEN 600 MG TABLET (FP) PO ONE ×2 (11:49→11:50)
--- NOTE | 2019-12-10 11:50 | PDOC ---
Attending Attestation - Resident Resident Name: Raymundo Arthur - ED Attending Attestation I have performed the following: I have examined & evaluated the patient, The case was reviewed & discussed with the resident, I agree w/resident's findings & plan - HPI HPI: 12/10/19 11:47 59 y/o female fell down two stairs today injuring both ankles and left hip. Denies LOC or pain any place else. has not taken anything for the pain. - Physicial Exam PE: 12/10/19 11:48 VS stable HEENT: unremarkable Heart: RRR w/o murmur Lungs: CTA b/l, no wheezing Abd: soft nontender +BS EXT: mild swelling to left ankle tender, right ankle mild swelling full ROM both ankles, no leg shortening or external rotation noted, no hip tenderness or pelvis instability Neuro: grossly intact no focal deficits noted - Medical Decision Making 12/10/19 12:51 Bilateral ankle pain, able to ambulate X-ray left right ankle, no fracture Left hip: no fracture Final Dx: left ankle sprain Ice, Motrin, rest If worsen return to ER Agree with exam and plan of Dr. Arthur
== END 2019-12-10 13:25 | disposition home or self-care (01) ==
LOC: FER 11:28
DX: S93.402A Sprain of unspecified ligament of left ankle, initial encounter (principal); F17.210 Nicotine dependence, cigarettes, uncomplicated; R73.03 Prediabetes; I10 Essential (primary) hypertension; E78.00 Pure hypercholesterolemia, unspecified; E07.9 Disorder of thyroid, unspecified; Z96.652 Presence of left artificial knee joint
CPT/HCPCS: 73523-TC-FY; 73610-TC-LT-FY; 73610-TC-RT-FY; 73630-TC-LT; 73630-TC-RT-FY; 99284-25

== ENCOUNTER 2023-08-16 21:12 | Emergency (ER) | payer OTHER ==
[2023-08-16 21:22] VITALS: BP 117/62; PULSE 96; RESP 20; TEMP 98.8; BMI 39.3
== END 2023-08-16 22:11 | disposition home or self-care (01) ==
LOC: FER 21:12
DX: R05.9 Cough, unspecified (principal); J20.9 Acute bronchitis, unspecified
CPT/HCPCS: 99283-25